=== PATIENT | female | born 1935 | race African-American/Black ===

== ENCOUNTER 2021-06-16 05:33 | Emergency (ER) | payer OTHER ==
[~2021-06-16] VITALS: Ht 165.1 cm; Wt 63.0 kg
[2021-06-16 06:06] LABS: BASOPHILS % 0.1 % (0.0-2.0); EOSINOPHILS % 0.2 % (0.0-5.0); HEMATOCRIT. 43.6 % (36.0-48.0); HEMOGLOBIN. 14.3 g/dL (12.0-16.0); LYMPHOCYTES % 9.6 % (20.0-50.0); MEAN CORPUSCULAR HEMOGLOBIN 30.4 pg (28.0-32.0); MEAN CORPUSCULAR VOLUME 92.8 fL (81.0-99.0); MEAN PLATELET VOLUME 9.5 fl (7.4-10.4); MONOCYTES % 6.5 % (2.0-8.0); NEUTROPHILS % 83.6 % (40.0-76.0); PLATELET 157 x1000/uL (130-400); RED CELL DISTRIBUTION WIDTH 15.6 % (11.6-14.6)
[2021-06-16 06:09] LABS: CHLORIDE 107 mEq/L (98-107)
[2021-06-16 08:54] VITALS: BP 116/64
== END 2021-06-16 10:02 | disposition left against medical advice (07) ==
LOC: ER 05:33
DX: R55 Syncope and collapse (principal); R51.9 Headache, unspecified; I48.91 Unspecified atrial fibrillation; J44.9 Chronic obstructive pulmonary disease, unspecified; I10 Essential (primary) hypertension
CPT/HCPCS: 36415; 71045; 80053; 83880; 84484; 85025; 93005; 99285